=== PATIENT | female | born 1980 | race Two or more races ===

== ENCOUNTER 2021-04-03 12:00 | Inpatient (IN) | payer OTHER ==
[~2021-04-03] VITALS: Ht 152.4 cm; Wt 72.6 kg
[2021-04-03] MEDS ORDERED: SYNTHROID175 MCG PO (15:55)
[2021-04-03] MEDS ORDERED: CRESTOR40 MG PO (15:57)
[2021-04-03] MEDS ORDERED: LABETALOL PO (15:57)
[2021-04-10] MEDS ORDERED: LABETALOL HCL200 MG PO (08:23)
== END 2021-04-13 18:42 | disposition home or self-care (01) | DRG 742 ==
LOC: O/R 04-09 06:40 → OB/GYN 04-09 12:00 → SURH 04-09 19:21
PROVIDERS: Surgery; ADMIT Obstetrics & Gynecology Gynecologic Oncology; ATTEND Obstetrics & Gynecology Gynecologic Oncology
PROC: 0UT70ZZ Resection of Bilateral Fallopian Tubes, Open Approach (ICD-10-PCS; 2021-04-09)
PROC: 0DBN0ZZ Excision of Sigmoid Colon, Open Approach (ICD-10-PCS; 2021-04-09)
PROC: 0DBP0ZZ Excision of Rectum, Open Approach (ICD-10-PCS; 2021-04-09)
PROC: 0UT90ZZ Resection of Uterus, Open Approach (ICD-10-PCS; principal; 2021-04-09 12:00)
PROC: 0UT20ZZ Resection of Bilateral Ovaries, Open Approach (ICD-10-PCS; 2021-04-09 12:00)
DX: D25.1 Intramural leiomyoma of uterus (principal); N73.3 Female acute pelvic peritonitis; D25.2 Subserosal leiomyoma of uterus; N72 Inflammatory disease of cervix uteri; N80.1 Endometriosis of ovary; N80.0 Endometriosis of uterus; N80.5 Endometriosis of intestine; R19.07 Generalized intra-abdominal and pelvic swelling, mass and lump; R97.1 Elevated cancer antigen 125 [CA 125]; D48.4 Neoplasm of uncertain behavior of peritoneum; I10 Essential (primary) hypertension; E78.5 Hyperlipidemia, unspecified; E03.8 Other specified hypothyroidism